=== PATIENT | female | born 1990 | race Caucasian/White ===

== ENCOUNTER → 2020-06-19 13:40 | Outpatient (BNVA) | payer OTHER, SELFPAY | PROVIDERS: PCP Nurse Practitioner Family; Visit Provider Family Medicine | DX: Z11.59 Encounter for screening for other viral diseases (principal); Z20.828 Contact with and (suspected) exposure to other viral communicable diseases | CPT/HCPCS: 87635 ==

== ENCOUNTER → 2021-03-26 11:30 | Outpatient (BNVA) | payer OTHER, SELFPAY | PROVIDERS: PCP Nurse Practitioner Family; Visit Provider Nurse Practitioner Family | DX: J06.9 Acute upper respiratory infection, unspecified (principal) | CPT/HCPCS: 87635 ==

== ENCOUNTER → 2024-11-15 14:01 | Outpatient (BNVA) | payer OTHER, SELFPAY | PROVIDERS: Visit Provider Nurse Practitioner Family | DX: M25.551 Pain in right hip (principal); M54.50 Low back pain, unspecified | CPT/HCPCS: 72100; 73502 ==

== ENCOUNTER → 2025-05-05 15:00 | Outpatient (BNVA) | payer OTHER, SELFPAY | PROVIDERS: Visit Provider Nurse Practitioner Family | DX: N92.6 Irregular menstruation, unspecified (principal) | CPT/HCPCS: 80053; 84443; 84702; 84703; 85025 ==

== ENCOUNTER 2025-05-20 10:57 | Outpatient (CLI) | payer OTHER, SELFPAY ==
--- NOTE | 2025-05-20 11:00 | US_ITS ---
WS: [id number] US pelv w/transvag [id number] HISTORY: N92.6 - Irregular menstruation, unspecified COMPARISON: 09/24/2018 Uterus: 8.2 cm x 6.1 cm x 5.5 cm. Uterus is normal size and slightly retroverted. Largest hypoechoic veins in the periphery of the uterus. Some of these veins extend into the central myometrium. No color Doppler was provided. Endometrium: 1.2 cm. Normal. Right ovary: 4.7 cm x 2.8 cm x 3.0 cm. Mildly prominent ovary. Numerous small follicles. There is a complex follicle measuring 2.5 x 1.9 x 1.9 cm. Left ovary: 2.7 cm x 2.4 cm x 1.7 cm. Normal size ovary with multiple small follicles. Dilated bilateral pelvic varicosities are identified. Small amount of free fluid in the pelvis greatest along the RIGHT adnexa. US/US pelv w/transvag [id number] IMPRESSION: 1. Normal endometrium. 2. Free fluid in the pelvis, physiologic amount of fluid and probably related to a ruptured ovarian cyst. 3. Dilated arcuate and uterine venous complex. Findings consistent with pelvic congestion syndrome.
== END 2025-05-20 10:58 | disposition home or self-care (01) ==
LOC: RAD 10:58
PROVIDERS: PCP Nurse Practitioner Family; Visit Provider Nurse Practitioner Family
DX: N92.6 Irregular menstruation, unspecified (principal); Z87.42 Personal history of other diseases of the female genital tract; N85.4 Malposition of uterus; I86.2 Pelvic varices
CPT/HCPCS: 76830; 76856